=== PATIENT | female | born 1990 | race Caucasian/White ===

== ENCOUNTER 2017-11-21 07:00 | Inpatient (IN) | payer OTHER ==
[~2017-11-21] VITALS: Ht 162.6 cm; Wt 65.8 kg
[2017-11-21] VITALS (49 sets, daily range): BP systolic 86–124; BP diastolic 52–84
[2017-11-21] MEDS ORDERED: D5 LR IV SOLUTION 1,000 ML IV SCH (08:32)
[2017-11-21] MEDS ORDERED: AMPICILLIN FOR IV USE 2,000 MG in NS (IVPB) 50 ML IV SCH (08:32)
[2017-11-21] MEDS ORDERED: NS (IVPB) 50 ML ONE (08:40)
[2017-11-21] MEDS ORDERED: MINERAL OIL CONCENTRATE 99.9% 15 ML UDC TOP PRN (08:45)
[2017-11-21] MEDS ORDERED: LIDOCAINE/EPI 2% 1:200,00 (XYLOCAINE) 10 ML VIAL INJ ONE (08:45)
--- OUTSIDE RECORDS SUMMARY | 2017-11-21 08:51 | XMS REPORT ---
Author Author SEVERIANO HOOD [facility] Address [address] [place] [address] Care Team Providers Care Outboard Technician Name Role Phone SEVERIANO HOOD Unavailable PROBLEMS Type Condition ICD9-CM Code [id number] Code Onset Dates Condition Status SNOMED Code Problem Panic disorder without agoraphobia F41.0 Active 77779780 Problem Endocrine, nutritional and metabolic diseases complicating , third trimester O99.283 Active 615000172 Problem Supervision of high risk in third trimester O09.93 Active 99246003 Problem Endocrine, nutritional and metabolic diseases complicating , second trimester O99.282 Active 747674567 Problem Hypothyroidism, unspecified type E03.9 Active 19354668 Problem Supervision of normal first in second trimester Z34.02 Active 18108390 Problem Insufficient antepartum care O09.30 Active [id number] ALLERGIES No Information ENCOUNTERS Encounter Location Date Diagnosis [facility] [address] [id number] [id number] 19 Nov, 2017 [facility] [address] [id number], [place] [id number] Nov, Supervision of high risk in third trimester O09.93 ; Endocrine, nutritional and metabolic diseases complicating , third trimester O99.283 ; Hypothyroidism, unspecified type E03.9 and Insufficient antepartum care O09.30 [facility] [address] [facility] [id number], [place] [address] Nov, [facility] [address] [facility] [id number], [place] [address] Nov, [facility] [address] [facility] [id number][place] [address] Oct, Supervision of high risk in third trimester O09.93 ; Endocrine, nutritional and metabolic diseases complicating , third trimester O99.283 and Hypothyroidism, unspecified type E03.9 [facility] [address] [facility] [id number] [place] [address] Oct, [facility] [address] [facility] [id number] [place] [id number] Oct, Supervision of high risk in third trimester O09.93 ; Endocrine, nutritional and metabolic diseases complicating , third trimester O99.283 ; Hypothyroidism, unspecified type E03.9 and Insufficient antepartum care O09.30 [facility] [address] [id number], [place] [id number] Oct, [facility] [address] [id number], [place] [id number] Sep, Hypothyroidism, unspecified type E03.9 [id number], [place] [id number] Sep, Supervision of high risk in third trimester O09.93 ; Endocrine, nutritional and metabolic diseases complicating , third trimester O99.283 ; Hypothyroidism, unspecified type E03.9 ; Insufficient antepartum care O09.30 and Encounter for immunization Z23 [facility] York[facility] [address] [id number], [place] [address] Sep, Second trimester Z34.92 [facility] [address] [id number], [place] [id number] Aug, Hypothyroidism, unspecified type E03.9 [facility] [address] [address] [id number], [place] [address]34[address] Aug, Supervision of normal first in second trimester Z34.02 ; Endocrine, nutritional and metabolic diseases complicating , second trimester O99.282 ; Insufficient antepartum care O09.30 and Hypothyroidism, unspecified type E03.9 [facility] [address] [address] [id number], [place] [address] Aug, 26 weeks gestation of Z3A.26 and Hypothyroidism, unspecified type E03.9 [facility] [address] [id number], [place] [address] Nov, Routine gynecological examination Z01.419 and Encounter for oral contraception initial prescription Z30.011 [facility] [address] [id number], [place] [id number] Sep, Encounter for Depo-Provera contraception Z30.42 [facility] [address] [place] [address] AVE [id number], [place] [address]5688 Jun, Encounter for Depo-Provera contraception Z30.42 [facility] [address] [place] [address] [id number], [place] [id number] Mar, Encounter for Depo-Provera contraception Z30.42 [facility] [address] [place] [address] AV [id number], [place] [id number] Dec, Encounter for Depo-Provera contraception Z30.42 [facility] [address] [place] [address] AV [id number], [place] [id number] Oct, [facility] [address] [place] [address] AV [id number], [place] [id number] Sep, Well woman exam Z01.419 ; Anxiety F41.9 ; Screen for STD ( sexually transmitted disease) Z11.3 ; Vagina, candidiasis B37.3 ; Other specified bacterial agents as the cause of diseases classified elsewhere B96.89 and Acute vaginitis N76.0 [facility] [address] [place] [address] AV [id number], [place] [id number] Sep, Panic disorder without agoraphobia F41.0 [facility] [address] [place] [address] AV [id number], [place] [id number] Sep, Encounter for Depo-Provera contraception Z30.42 [facility] [address] [id number], [place] [address] Jun, Encounter for Depo-Provera contraception Z30.42 [facility] [address] [place] [address] AV [id number], [place] [id number] Mar, Encounter for Depo-Provera contraception Z30.42 [facility] [address] [id number], [place] [address] Dec, Encounter for Depo-Provera contraception Z30.42 [facility] [address] [facility] [id number], [place] [address] Dec, [facility] [address] [id number], [place] [id number] Dec, UTI (urinary tract infection) N39.0 [facility] [address] [id number], [place] [address] Oct, Encounter for contraceptive management V25.9 [facility] [address] [id number], [place] [id number] July, Encounter for contraceptive management V25.9 [facility] [address]00565100[place], [place] [address] Jun, [facility] [address] [id number], [place] [address] Jun, [facility] [id number] [place] [address] Apr, [facility] [address]00565100[place], [place] [address] Apr, [facility] [address]00565100[place], [place] [address] Jan, [facility] [address]00565100[place], [place] [address] Jan, [facility] [address]00565100[place], [place] [address] Jan, [facility] [address] [id number], [place] [address] Jan, [facility] [address]65100[place], [place] [address] Dec, [facility] [address] [id number], [place] [address] Dec, [facility] [address] [id number], [place] [address] Dec, [facility] [address] [id number], [place] [address] Dec, [facility] [address] [id number], [place] [address] Oct, [facility] [address] [id number], [place] [address] Oct, [facility] [address] [id number], [place] [address] Aug, [facility] [address] [id number], [place] [address] Aug, [facility] [address]65100[place], [place] [address] May, [facility] [address] [facility] [id number], [place] [address] May, [facility] [address] [id number], [place] [address] Apr, [facility] [address] [id number], [place] [address]46 Apr, [facility] [address] [id number], [place] [address] Feb, [facility] [address] [facility] [id number], [place] [address] Feb, [facility] [address] [id number], [place] [id number] Sep, IMMUNIZATIONS No Known Immunizations SOCIAL HISTORY Never Assessed REASON FOR VISIT Medication Adjustment PLAN OF CARE VITAL SIGNS MEDICATIONS Medication Instructions Dosage Frequency Start Date End Date Duration Status Levothyroxine Sodium 100 MCG Orally Once a day 1 tablet on an empty stomach in the morning 24h 30 Tobi, 2018 30 day(s) Active RESULTS No Results PROCEDURES No Known procedures INSTRUCTIONS MEDICATIONS ADMINISTERED No Known Medications MEDICAL (GENERAL) HISTORY Type Description Date Surgical History No know Surgical history Hospitalization History abscess tooth 2011
--- OUTSIDE RECORDS SUMMARY | 2017-11-21 08:51 | XMS REPORT ---
Author Author SEVERIANO HOOD [facility] Address [address] [place] [address] Care Team Providers Care Trimming Inspector Name Role Phone SEVERIANO HOOD Unavailable PROBLEMS Type Condition ICD9-CM Code [id number] Code Onset Dates Condition Status SNOMED Code Problem Panic disorder without agoraphobia F41.0 Active 68290789 Problem Endocrine, nutritional and metabolic diseases complicating , third trimester O99.283 Active 834893287 Problem Supervision of high risk in third trimester O09.93 Active 53422434 Problem Endocrine, nutritional and metabolic diseases complicating , second trimester O99.282 Active 204873072 Problem Hypothyroidism, unspecified type E03.9 Active 69664555 Problem Supervision of normal first in second trimester Z34.02 Active 11844386 Problem Insufficient antepartum care O09.30 Active [id number] ALLERGIES No Known Allergies ENCOUNTERS Encounter Location Date Diagnosis [facility] [address] [id number] [id number] 19 Nov, 2017 [facility] [address] [facility] [address] [id number], [place] [id number] Nov, Supervision of high risk in third trimester O09.93 ; Endocrine, nutritional and metabolic diseases complicating , third trimester O99.283 ; Hypothyroidism, unspecified type E03.9 and Insufficient antepartum care O09.30 [facility] [address] [facility] [id number], [place] [address] Nov, [facility] [address] [facility] [id number], [place] 56278125- [address] Nov, [facility] [address] [facility] [id number], [place] [id number] Oct, Supervision of high risk in third trimester O09.93 ; Endocrine, nutritional and metabolic diseases complicating , third trimester O99.283 and Hypothyroidism, unspecified type E03.9 [facility] [address] [facility] [id number] [place] [address]74- [address] Oct, [facility] [address] [facility] [id number] [place] [address] Oct, Supervision of high risk in third trimester O09.93 ; Endocrine, nutritional and metabolic diseases complicating , third trimester O99.283 ; Hypothyroidism, unspecified type E03.9 and Insufficient antepartum care O09.30 [facility] [address] [id number], [place] 115[address] Oct, [facility] [address] [id number], [place] [address] Sep, Hypothyroidism, unspecified type E03.9 [facility]ITALhowsimple [facility] [id number], [place] [id number] Sep, Supervision of high risk in third trimester O09.93 ; Endocrine, nutritional and metabolic diseases complicating , third trimester O99.283 ; Hypothyroidism, unspecified type E03.9 ; Insufficient antepartum care O09.30 and Encounter for immunization Z23 [facility] [address] [id number], [place] [address] Sep, Second trimester Z34.92 [facility] [address] [id number], [place] [id number] Aug, Hypothyroidism, unspecified type E03.9 [facility] [address] [id number], [place] [address] Aug, Supervision of normal first in second trimester Z34.02 ; Endocrine, nutritional and metabolic diseases complicating , second trimester O99.282 ; Insufficient antepartum care O09.30 and Hypothyroidism, unspecified type E03.9 [facility] [address] [id number], [place] [id number] Aug, 26 weeks gestation of Z3A.26 and Hypothyroidism, unspecified type E03.9 [facility] [address] [facility] [address] [id number], [place] [address] Nov, Routine gynecological examination Z01.419 and Encounter for oral contraception initial prescription Z30.011 [facility] [address] [id number], [place] [id number] Sep, Encounter for Depo-Provera contraception Z30.42 [facility] [address] [place] [address] AV [id number], [place] [address]25[address] Jun, Encounter for Depo-Provera contraception Z30.42 [facility] [address] [place] [address] [id number], [place] [address]209[address] Mar, Encounter for Depo-Provera contraception Z30.42 [facility] [address] [place] [address] AV [id number], [place] 943405[address] Dec, Encounter for Depo-Provera contraception Z30.42 [facility] [address] [place] [address] AV [id number], [place] 9[address]796735 Oct, [facility] [address] [place] [address] AV [id number], [place] [id number] Sep, Well woman exam Z01.419 ; Anxiety F41.9 ; Screen for STD ( sexually transmitted disease) Z11.3 ; Vagina, candidiasis B37.3 ; Other specified bacterial agents as the cause of diseases classified elsewhere B96.89 and Acute vaginitis N76.0 [facility] [address] [place] [address] AV [id number], [place] [id number] Sep, Panic disorder without agoraphobia F41.0 [facility] [address] [place] [address] AV [id number], [place] [id number] Sep, Encounter for Depo-Provera contraception Z30.42 [facility] [address] [facility] [address] [id number], [place] [address]7101 Jun, Encounter for Depo-Provera contraception Z30.42 [facility] [address] [place] [address] AV [id number], [place] [address] Mar, Encounter for Depo-Provera contraception Z30.42 [facility] [address] [facility] [address] [id number], [place] [address]1986[address] Dec, Encounter for Depo-Provera contraception Z30.42 [facility] [address] [facility] [id number], [place] [address] Dec, [facility] [address] [id number], [place] 559316858 Dec, UTI (urinary tract infection) N39.0 [facility] [address] [id number], [place] [address] Oct, Encounter for contraceptive management V25.9 [facility] [address] [id number], [place] [address]662071 July, Encounter for contraceptive management V25.9 [facility] [address]00565100[place], [place] [address] Jun, [facility] [address]00565100[place], [place] [address]- [address] Jun, [facility] [id number] [place] [address] Apr, [facility] [address]00565100[place], [place] [address]- [address] Apr, [facility] [address]00565100[place], [place] [address]- [address] Jan, [facility] [address]00565100[place], [place] [address]- 9515 Jan, [facility] [address]00565100[place], [place] [address]- 9463 Jan, [facility] [address]00565100[place], [place] [address]- 3833 Jan, [facility] [address]00565100[place], [place] [address]- [address]123 Dec, [facility] [address] [id number], [place] [address]- 6336 Dec, [facility] [address] [id number], [place] [address]- 5666 Dec, [facility] [address] [id number], [place] [address]- 2546 Dec, [facility] [address]00565100[place], [place] [address]- 4146 Oct, [facility] [address] [id number], [place] [address]- 4620 Oct, [facility] [address]00565100[place], [place] [address]- [address]16 Aug, [facility] [address]00565100[place], [place] [address]- 5916 Aug, [facility] [address]00565100[place], [place] [address]- 6136 May, [facility] [address] [id number], [place] [address]- 4319 May, [facility] [address] [id number], [place] [address]- 2766 Apr, [facility] [address] [id number], [place] [address]- 2546 Apr, [facility] [address] [id number], [place] [address]- 5276 Feb, [facility] [address] [facility] [id number], [place] [address]- 2546 Feb, [facility] [id number], [place] [id number] Sep, IMMUNIZATIONS Vaccine Route Administration Date Status TDAP (BOOSTRIX) IM Intramuscular October 01, 2017 Administered SOCIAL HISTORY Never Assessed REASON FOR VISIT OB f/u PLAN OF CARE Activity Details Follow Up 2 Weeks Reason: VITAL SIGNS Weight 141.4 lbs 2017-10-01 Blood pressure systolic 100 mmHg 2017-10-01 Blood pressure diastolic 60 mmHg 2017-10-01 MEDICATIONS Medication Instructions Dosage Frequency Start Date End Date Duration Status Levothyroxine Sodium 75 mcg Orally Once a day 1 tablet on an empty stomach in the morning 24h Aug, 30 day(s) Active - Orally Once a day 1 tablet 24h Active RESULTS Name Result Date Reference Range UA OB DIP (IN HOUSE) 2017-10-01 Glucose negative Protein negative Ultrasound : OB, Limited PROCEDURES Procedure Date Ordered Result Body Site URINE-NO MICRO October 01, 2017 VENIPUNCT, ROUTINE* October 01, 2017 OB US >/=14 WKS, SNGL FETUS October 01, 2017 TDAP (BOOSTRIX) October 01, 2017 ASSAY THYROID STIM HORMONE October 01, 2017 SINGLE IMMUNIZATION ADMIN October 01, 2017 INSTRUCTIONS MEDICATIONS ADMINISTERED No Known Medications MEDICAL (GENERAL) HISTORY Type Description Date Surgical History No know Surgical history Hospitalization History abscess tooth 2011
--- OUTSIDE RECORDS SUMMARY | 2017-11-21 08:52 | XMS REPORT ---
Author Author DAVID BEACH [facility] HERMAN Address [address] [place] [address] Care Team Providers Care Traffic Sergeant Name Role Phone DAVID BEACH Unavailable PROBLEMS Type Condition ICD9-CM Code HHP52-LW Code Onset Dates Condition Status SNOMED Code Problem Panic disorder without agoraphobia F41.0 Active 59050030 Problem Endocrine, nutritional and metabolic diseases complicating , third trimester O99.283 Active 681492230 Problem Supervision of high risk in third trimester O09.93 Active 16824135 Problem Endocrine, nutritional and metabolic diseases complicating , second trimester O99.282 Active 987361312 Problem Hypothyroidism, unspecified type E03.9 Active 05029523 Problem Supervision of normal first in second trimester Z34.02 Active 41996548 Problem Insufficient antepartum care O09.30 Active [id number] ALLERGIES No Known Allergies ENCOUNTERS Encounter Location Date Diagnosis [facility] [address] [facility] [id number], [place] [id number] Nov, [facility] [address] [id number] [address] Nov, [facility] [address] [id number], [place] [address] Oct, Supervision of high risk in third trimester O09.93 ; Endocrine, nutritional and metabolic diseases complicating , third trimester O99.283 and Hypothyroidism, unspecified type E03.9 [facility] [address] [facility] [id number] J[place] [address] Oct, [facility] 120 [facility] [id number][place] [address] Oct, Supervision of high risk in third trimester O09.93 ; Endocrine, nutritional and metabolic diseases complicating , third trimester O99.283 ; Hypothyroidism, unspecified type E03.9 and Insufficient antepartum care O09.30 [facility] [address] [place] [address] AV [id number], [place] [address]90[address] Oct, [facility] [address] [place] [address] AV [id number], [place] [address] Sep, Hypothyroidism, unspecified type E03.9 [facility] HER[facility] [id number], [place] [address] Sep, Supervision of high risk in third trimester O09.93 ; Endocrine, nutritional and metabolic diseases complicating , third trimester O99.283 ; Hypothyroidism, unspecified type E03.9 ; Insufficient antepartum care O09.30 and Encounter for immunization Z23 [facility] [address] [place] [address] [id number], [place] [address]000295 Sep, Second trimester Z34.92 [facility] [address] [place] [address] [id number], [place] [address] Aug, Hypothyroidism, unspecified type E03.9 [facility]Virt[facility]HERMAN[address] [id number], [place] [address] Aug, Supervision of normal first in second trimester Z34.02 ; Endocrine, nutritional and metabolic diseases complicating , second trimester O99.282 ; Insufficient antepartum care O09.30 and Hypothyroidism, unspecified type E03.9 [facility]HER[facility] [id number], [place] 843793326 Aug, 26 weeks gestation of Z3A.26 and Hypothyroidism, unspecified type E03.9 [facility]HERMAN[address] [id number], [place] [address] Nov, Routine gynecological examination Z01.419 and Encounter for oral contraception initial prescription Z30.011 [facility] RightsTER [address] [place] [address] [id number], [place] [address]294 Sep, Encounter for Depo-Provera contraception Z30.42 [facility] RightsTER [employer] [facility] [id number], [place] [address]16[address]15 Jun, Encounter for Depo-Provera contraception Z30.42 [facility] [address] [id number], [place] [address] Mar, Encounter for Depo-Provera contraception Z30.42 [facility] [address] [id number], [place] [address] Dec, Encounter for Depo-Provera contraception Z30.42 [facility] [address] [id number], [place] [address]7626[address] Oct, [facility] Critical access hospital[address] [id number], [place] [address]79[address]676 Sep, Well woman exam Z01.419 ; Anxiety F41.9 ; Screen for STD ( sexually transmitted disease) Z11.3 ; Vagina, candidiasis B37.3 ; Other specified bacterial agents as the cause of diseases classified elsewhere B96.89 and Acute vaginitis N76.0 [facility] [address] [id number], [place] [address]28224081 Sep, Panic disorder without agoraphobia F41.0 [facility] [address] [place] [address] AV [id number], [place] [id number] Sep, Encounter for Depo-Provera contraception Z30.42 [facility] [address] [id number], [place] [id number] Jun, Encounter for Depo-Provera contraception Z30.42 [facility] [address] [id number], [place] [id number] Mar, Encounter for Depo-Provera contraception Z30.42 [facility] [address] [id number], [place] [id number] Dec, Encounter for Depo-Provera contraception Z30.42 [facility] [address] [facility] [id number] [place] [address] Dec, [facility] [address] [place] [address] AVE [id number], [place] [id number] Dec, UTI (urinary tract infection) N39.0 [facility] [address] [id number] [place] [address] Oct, Encounter for contraceptive management V25.9 [facility] [address] [id number] [place] [id number] July, Encounter for contraceptive management V25.9 [facility] [address] [id number] [address] Jun, [facility] [address] [facility] [id number] [address] Jun, [facility] [address] [facility] [id number] [place] [address] Apr, [facility] [address] [facility] [id number] [place] [address] Apr, [facility] [address] [facility] [id number] [place] [address] Jan, [facility] [address] [facility] [id number] [place] [address] Jan, [facility] [address] [facility] [id number] [place] [address] Jan, [facility] [address] [facility] [id number] [place] [address] Jan, [facility] [address] [facility] [id number] [place] [address] Dec, [facility] [address] [facility] [id number] [place] [address] Dec, [facility] [address] [facility] [id number] [address] Dec, [facility] [address] [facility] [id number] [place] [address] Dec, [facility] [address] [facility] [id number] [address] Oct, [facility] [address] [facility] [id number] [place] [address] Oct, [facility] [address] [id number] [address] Aug, [facility] [address] [id number] [address] Aug, [facility] [address]00565100[place] [address] May, [facility] [address] [id number] [address] May, [facility] [address]00565100[place] [address] Apr, [facility] [address]00565100[place] [address] Apr, [facility] [address] [id number] [address] Feb, [facility] [address] [facility] [id number] [place] [address] Feb, [facility] [address] [id number], [place] [address] Sep, IMMUNIZATIONS No Known Immunizations SOCIAL HISTORY Never Assessed REASON FOR VISIT OB f/aarti Silver ma PLAN OF CARE Activity Details Follow Up 10/01- Needs ultrasound Reason: VITAL SIGNS Height 63 in 2017-09-18 Weight 141.7 lbs 2017-09-18 Temperature 97.7 degrees Fahrenheit 2017-09-18 Heart Rate 73 bpm 2017-09-18 Respiratory Rate 18 2017-09-18 Oximetry 98 % 2017-09-18 BMI 25.101 kg/m2 2017-09-18 Blood pressure systolic 108 mmHg 2017-09-18 Blood pressure diastolic 60 mmHg 2017-09-18 MEDICATIONS Medication Instructions Dosage Frequency Start Date End Date Duration Status - Orally Once a day 1 tablet 24h Active Levothyroxine Sodium 75 mcg Orally Once a day 1 tablet on an empty stomach in the morning 24h 24 Aug, 2017 30 day(s) Active RESULTS No Results PROCEDURES No Known procedures INSTRUCTIONS MEDICATIONS ADMINISTERED No Known Medications MEDICAL (GENERAL) HISTORY Type Description Date Hospitalization History abscess tooth 2011
--- OUTSIDE RECORDS SUMMARY | 2017-11-21 08:52 | XMS REPORT ---
Author DAVID Herrera [facility] eClinicalWorks Address Unknown Phone Unavailable Care Team Providers Care Needle Control Cheniller Name Role Phone DAVID BEACH CP Unavailable Allergies No Known Allergies Problems Problem Type Condition Code Onset Dates Condition Status Assessment Encounter for Depo-Provera contraception Z30.42 Active Medications No Known Medications Procedures Procedure Coding System Code Date THER/PROPH/DIAG INJ, SC/IM CPT-4 32851 Jan 04, 2015 URINE TEST CPT-4 25342 Jan 04, 2015 DEPO PROVERA (150 MG/ML) CPT-4 J1050 Jan 04, 2015 Results Name Result Date Reference Range Unit Abnormality Flag TEST, URINE (IN HOUSE) Summary Purpose eClinicalWorks Submission
--- OUTSIDE RECORDS SUMMARY | 2017-11-21 08:52 | XMS REPORT ---
Author Author DAVID BEACH [facility] Address [address] [place] [address] Care Team Providers Care Brush Painter Name Role Phone DAVID BEACH Unavailable PROBLEMS Type Condition ICD9-CM Code QMQ34-PQ Code Onset Dates Condition Status SNOMED Code Problem Panic disorder without agoraphobia F41.0 Active 38499885 ALLERGIES Unknown Allergies SOCIAL HISTORY No smoking Hx information available PLAN OF CARE VITAL SIGNS MEDICATIONS Unknown Medications RESULTS Name Result Date Reference Range TEST, URINE (IN HOUSE) 2016-03-27 RESULTS neg Lot # [id number] Control pos Exp date 08/07/17 PROCEDURES Procedure Date Ordered Related Diagnosis Body Site DEPO PROVERA (150 MG/ML) Mar 27, 2016 THER/PROPH/DIAG INJ, SC/IM Mar 27, 2016 URINE TEST Mar 27, 2016 IMMUNIZATIONS Vaccine Route Administration Date Status DEPO PROVERA (150 MG/ML) IM Intramuscular Mar 27, 2016 Administered
--- OUTSIDE RECORDS SUMMARY | 2017-11-21 08:52 | XMS REPORT ---
Author DAVID Herrera eClinical[employer] Address Unknown Phone Unavailable Care Team Providers Care Mercerizing Range Feeder Name Role Phone DAVID BEACH CP Unavailable Allergies, Adverse Reactions, Alerts Substance Reaction Event Type N.K.D.A. Info Not Available Non Drug Allergy Problems Problem Type Condition Code Onset Dates Condition Status Assessment UTI (urinary tract infection) N39.0 Active Medications Medication Code System Code Instructions Start Date End Date Status Dosage Pyridium [facility] [address]-80 100 MG Orally Three times a day- bladder pain Dec 30, 2014 Jan 02, 2015 1 tablet after meals Bactrim DS [facility] [address]-68 800-160 MG Orally 2 times a day Dec 30, 2014 Jan 09, 2015 1 tablet Depo-Provera [facility] [address]-54 150 mg/mL Feb 23, 2013 inject 150 mg by intramuscular route every 3 months Procedures Procedure Coding System Code Date Office Visit, Est Pt., Level 3 CPT-4 75766 Dec 30, 2014 URINE CULTURE/COLONY COUNT CPT-4 58448 Dec 30, 2014 URINALYSIS, AUTO, W/O SCOPE CPT-4 67547 Dec 30, 2014 Vital Signs Date/Time: Dec 30, 2014 Temperature 97.4 F Weight 117.4 lbs Height 63 in BMI 20.79 Index Blood Pressure Diastolic 62 mmHg Blood Pressure Systolic 98 mmHg Cardiac Monitoring Heart Rate 75 bpm Results Name Result Date Reference Range Unit Abnormality Flag UA W/CULTURE IF INDICATED (IN HOUSE) Summary Purpose eClinicalWorks Submission
--- OUTSIDE RECORDS SUMMARY | 2017-11-21 08:52 | XMS REPORT ---
Author Author SEVERIANO HOOD [facility] Address [address] [place] [address] Care Team Providers Care Cafeteria Aide Name Role Phone JEREMYDIDISEVERIANO Unavailable PROBLEMS Type Condition ICD9-CM Code EGD69-MU Code Onset Dates Condition Status SNOMED Code Problem Panic disorder without agoraphobia F41.0 Active 27246015 Problem Endocrine, nutritional and metabolic diseases complicating , third trimester O99.283 Active 741970193 Problem Supervision of high risk in third trimester O09.93 Active 58738221 Problem Endocrine, nutritional and metabolic diseases complicating , second trimester O99.282 Active 769199438 Problem Hypothyroidism, unspecified type E03.9 Active 96001986 Problem Supervision of normal first in second trimester Z34.02 Active 50765041 Problem Insufficient antepartum care O09.30 Active 7871438253580 ALLERGIES No Known Allergies ENCOUNTERS Encounter Location Date Diagnosis [facility] HERMAN [address] [id number] [id number] Nov, 2017 [facility] 120 [facility] [id number], [place] [id number] Oct, Supervision of high risk in third trimester O09.93 ; Endocrine, nutritional and metabolic diseases complicating , third trimester O99.283 and Hypothyroidism, unspecified type E03.9 [facility] [address] [facility] [id number], [place] [address]- 2014 Oct, [address] [id number] [id number] Oct, 2018 Supervision of high risk in third trimester O09.93 ; Endocrine, nutritional and metabolic diseases complicating , third trimester O99.283 ; Hypothyroidism, unspecified type E03.9 and Insufficient antepartum care O09.30 [facility] [employer]HER[address] [id number], [place] [address] Oct, [facility] [address] [facility] [address] [id number], [place] [address] Sep, Hypothyroidism, unspecified type E03.9 [facility] [address] [facility] [address] [id number], [place] 280[address]355 Sep, Supervision of high risk in third trimester O09.93 ; Endocrine, nutritional and metabolic diseases complicating , third trimester O99.283 ; Hypothyroidism, unspecified type E03.9 ; Insufficient antepartum care O09.30 and Encounter for immunization Z23 [facility] [address] [facility] [address] [id number], [place] [address] Sep, Second trimester Z34.92 [facility] Hirsch [facility] AV [id number], [place] [id number] Aug, Hypothyroidism, unspecified type E03.9 [facility] [address] [place] [address] AV [id number], [place] [address] Aug, Supervision of normal first in second trimester Z34.02 ; Endocrine, nutritional and metabolic diseases complicating , second trimester O99.282 ; Insufficient antepartum care O09.30 and Hypothyroidism, unspecified type E03.9 [facility] [address] [facility] [address] [id number], [place] [address] Aug, 26 weeks gestation of Z3A.26 and Hypothyroidism, unspecified type E03.9 [facility] [address] [facility] [address] [id number], [place] [address] Nov, Routine gynecological examination Z01.419 and Encounter for oral contraception initial prescription Z30.011 [facility] [address] [facility] [address] [id number], [place] [address] Sep, Encounter for Depo-Provera contraception Z30.42 [facility] [address] [id number], [place] [address] Jun, Encounter for Depo-Provera contraception Z30.42 [facility] [address] [id number], [place] [address] Mar, Encounter for Depo-Provera contraception Z30.[address] [facility] [address] [id number], [place] [address] Dec, Encounter for Depo-Provera contraception Z30.42 [facility] [address] [facility] [address] [id number], [place] [address] Oct, [facility] [address] [id number], [place] [address] Sep, Well woman exam Z01.419 ; Anxiety F41.9 ; Screen for STD ( sexually transmitted disease) Z11.3 ; Vagina, candidiasis B37.3 ; Other specified bacterial agents as the cause of diseases classified elsewhere B96.89 and Acute vaginitis N76.0 [facility] [address] [facility] [address] [id number], [place] [address] Sep, Panic disorder without agoraphobia F41.0 [facility] [address] [facility] [address] [id number], [place] [id number] Sep, Encounter for Depo-Provera contraception Z30.42 [facility] [address] [facility] [address] [id number], [place] [address] Jun, Encounter for Depo-Provera contraception Z30.42 [facility] [address] [facility] [address] [id number], [place] [address] Mar, Encounter for Depo-Provera contraception Z30.42 [facility] [address] [facility] [address] [id number], [place] [address] Dec, Encounter for Depo-Provera contraception Z30.42 [facility] [address] [facility] [id number], [place] [address]12- [address] Dec, [facility] [address] [facility] [address] [id number], [place] [address] Dec, UTI (urinary tract infection) N39.[address] [facility] [address] [address] [id number], [place] [address] Oct, Encounter for contraceptive management V25.9 [facility] [address] [facility] [address] [id number], [place] [id number] July, Encounter for contraceptive management V25.9 [facility] [address] [facility] [id number][place] [address] Jun, [facility] [address] [facility] [id number] [place] [address] Jun, [facility] [address] [facility] [id number] [place] [address] Apr, [facility] [place] [id number] [place] [address]- [address] Apr, [facility] [id number] [place] [address]- [address]8 Jan, [facility] [id number] [place] [address]- 9573 Jan, [facility] [address] [id number] [address] Jan, [facility] [address] [id number] [address]- [address] Jan, [facility] [address] [id number] [address]- [address]60 Dec, [facility] [address] [facility] [id number][place] [address]- [address] Dec, [facility] [place] [facility] [address] [facility] [id number][place] [address]- [address] Dec, [facility] [place] [facility] [address] [facility] [id number][place] [address]- [address] Dec, [facility] [address] [facility] [id number][place] [address]- 8855 Oct, [facility] [address] [id number] [address]- [address]46 Oct, [facility] [address] [facility] [id number][place] [address]- [address]46 Aug, [facility] [address] [facility] [id number][place] [address]- 2546 Aug, [facility] [address] [facility] [id number][place] [address]- 2546 May, [facility] [address] [facility] [id number][place] [address]- 2546 May, [facility] [address] [facility] [id number][place] [address]- 2546 Apr, [facility] [address] [id number] [address]- 2546 Apr, [facility] [address] [id number] [address]- 2546 Feb, [facility] [address] [facility] [id number][place] [address]- [address] Feb, [facility] [address] [facility] [id number][place] [id number] Sep, IMMUNIZATIONS No Known Immunizations SOCIAL HISTORY Never Assessed REASON FOR VISIT OB-intake Alvin HOFFMAN PLAN OF CARE Activity Details Follow Up 3 Weeks Reason: VITAL SIGNS Height 63 in 2017-08-29 Weight 138.2 lbs 2017-08-29 Heart Rate 80 bpm 2017-08-29 Respiratory Rate 18 2017-08-29 BMI 24.481 kg/m2 2017-08-29 Blood pressure systolic 100 mmHg 2017-08-29 Blood pressure diastolic 62 mmHg 2017-08-29 MEDICATIONS Medication Instructions Dosage Frequency Start Date End Date Duration Status - Orally Once a day 1 tablet 24h Active Levothyroxine Sodium 50 MCG Orally Once a day 1 tablet on an empty stomach in the morning 24h Active RESULTS No Results PROCEDURES Procedure Date Ordered Result Body Site BLOOD TYPING, ABO August 29, 2017 BLOOD TYPING, RH (D) August 29, 2017 VARICELLA-ZOSTER ANTIBODY August 29, 2017 ASSAY THYROID STIM HORMONE August 29, 2017 COMPREHEN METABOLIC PANEL August 29, 2017 URINE CULTURE/COLONY COUNT August 29, 2017 DRUG TEST PRSMV DIR OPT OBS August 29, 2017 RUBELLA ANTIBODY August 29, 2017 HEPATITIS B SURFACE AG, EIA August 29, 2017 URINE-NO MICRO August 29, 2017 HEPATITIS C AB TEST August 29, 2017 BLOOD SEROLOGY, QUALITATIVE August 29, 2017 COMPLETE CBC W/AUTO DIFF WBC August 29, 2017 HIV-1 AG W/HIV-1 & HIV-2 AB August 29, 2017 CHYLMD TRACH, DNA, AMP PROBE August 29, 2017 N.GONORRHOEAE, DNA, AMP PROB August 29, 2017 VENIPUNCT, ROUTINE* August 29, 2017 INSTRUCTIONS MEDICATIONS ADMINISTERED No Known Medications MEDICAL (GENERAL) HISTORY Type Description Date Hospitalization History abscess tooth 2010
--- OUTSIDE RECORDS SUMMARY | 2017-11-21 08:52 | XMS REPORT ---
Author Author SEVERIANO HOOD Organization [facility] [place] Address [address] [place] [address] Care Team Providers Care Veterinarian Small Animal Name Role Phone JEREMYDIDI SEVERIANO Unavailable PROBLEMS Type Condition ICD9-CM Code EFB13-IR Code Onset Dates Condition Status SNOMED Code Problem Panic disorder without agoraphobia F41.0 Active 19577689 Problem Endocrine, nutritional and metabolic diseases complicating , third trimester O99.283 Active 645604213 Problem Supervision of high risk in third trimester O09.93 Active 51727907 Problem Endocrine, nutritional and metabolic diseases complicating , second trimester O99.282 Active 725069372 Problem Hypothyroidism, unspecified type E03.9 Active 36169581 Problem Supervision of normal first in second trimester Z34.02 Active 28077088 Problem Insufficient antepartum care O09.30 Active [id number] ALLERGIES No Information ENCOUNTERS Encounter Location Date Diagnosis [facility] [address] [id number] [id number] Oct, [facility], [place] [address] [id number] [address] Oct, [facility] [id number], [place] [address] Oct, Supervision of high risk in third trimester O09.93 ; Endocrine, nutritional and metabolic diseases complicating , third trimester O99.283 ; Hypothyroidism, unspecified type E03.9 and Insufficient antepartum care O09.30 [facility] [address] [id number], [place] [id number] 08 Oct, 2017 [facility] [address] [id number], [place] [address] Sep, Hypothyroidism, unspecified type E03.9 [facility] [address] [id number], [place] [id number] Sep, Supervision of high risk in third trimester O09.93 ; Endocrine, nutritional and metabolic diseases complicating , third trimester O99.283 ; Hypothyroidism, unspecified type E03.9 ; Insufficient antepartum care O09.30 and Encounter for immunization Z23 [facility] [address] [facility] [address] [id number], [place] [id number] Sep, Second trimester Z34.92 [facility] [address] [id number][place] [address] Aug, Hypothyroidism, unspecified type E03.9 [facility] TianCerdick HERAMN [address] [place] [address] AV [id number], [place] [id number] Aug, Supervision of normal first in second trimester Z34.02 ; Endocrine, nutritional and metabolic diseases complicating , second trimester O99.282 ; Insufficient antepartum care O09.30 and Hypothyroidism, unspecified type E03.9 [facility]ed[facility] HERMAN [address] [place] [address] AV [id number], [place] [address] Aug, 26 weeks gestation of Z3A.26 and Hypothyroidism, unspecified type E03.9 [facility]ed[facility] HERMAN [address] [place] [address] AV [id number], [place] [id number] Nov, Routine gynecological examination Z01.419 and Encounter for oral contraception initial prescription Z30.011 [facility]ed[facility] HERMAN [address] [place] [address] [id number], [place] [address] Sep, Encounter for Depo-Provera contraception Z30.42 [facility] [id number], [place] [address] Jun, Encounter for Depo-Provera contraception Z30.42 [facility] [address] AV [id number], [place] [id number] Mar, Encounter for Depo-Provera contraception Z30.42 [facility] [address] [facility] [id number], [place] [address] Dec, Encounter for Depo-Provera contraception Z30.[address] [facility] [address] [id number], [place] [id number] Oct, [facility] [address] [id number], [place] [address] Sep, Well woman exam Z01.419 ; Anxiety F41.9 ; Screen for STD ( sexually transmitted disease) Z11.3 ; Vagina, candidiasis B37.3 ; Other specified bacterial agents as the cause of diseases classified elsewhere B96.89 and Acute vaginitis N76.0 [facility] [address] [facility] [address] [id number], [place] [id number] Sep, Panic disorder without agoraphobia F41.0 [facility] [address] [facility] [address] [id number], [place] [id number] Sep, Encounter for Depo-Provera contraception Z30.42 [facility] [address] [facility] [address] [id number], [place] [id number] Jun, Encounter for Depo-Provera contraception Z30.42 [facility] [address] [facility] [address] [id number], [place] [id number] Mar, Encounter for Depo-Provera contraception Z30.42 [facility] [address] [facility] [address] [id number], [place] [id number] Dec, Encounter for Depo-Provera contraception Z30.42 [facility] [place] [address] [facility] [id number], [place] [address] Dec, [facility] [address] [facility] [address] [id number], [place] [id number] Dec, UTI (urinary tract infection) N39.0 [facility] [address] [facility] [address] [id number], [place] [id number] Oct, Encounter for contraceptive management V25.9 [facility] [address] [facility] AV [id number], [place] [address] July, Encounter for contraceptive management V25.9 [facility] [place] [facility] [address] [id number] [address] 14 Jun, 2014 [facility] [place] [facility] [address] [id number] [place] [address] Jun, [facility] [place] [facility] [address] [id number] [place] [address] Apr, [facility] [place] [facility] [address] [id number] [place] [address] Apr, [facility] [place] [facility] [address] [id number] [place] [address] Jan, [facility] [place] [facility] [address] [id number] [place] Jan, [facility] [place] [facility] [address] [id number] [place] [address] Jan, [facility] [place] [facility] [address] [id number] [place] [address] Jan, [facility] [place] [facility] [address] [id number] [place] [address] Dec, [facility] [place] [facility] [address] [id number] [place] [address] Dec, [facility] [place] [facility] [address] [id number] [place] [address] Dec, [facility] [place] [facility] [address] [id number] [place] [address] Dec, [facility] [place] [facility] [address] [id number] [place] [address] Oct, [facility] [place] [facility] [address] [id number] [place] [address] Oct, [facility] [place] [facility] [address] [id number] [place] [address] Aug, [facility] [place] [facility] [address] [id number] [place] [address] Aug, [facility] [place] [address] [facility] [id number], [place] [address] May, [facility] [place] [address] [facility] [id number], [place] [address] May, [facility] [place] [address] [facility] [id number], [place] [address] Apr, [facility] [place] [address] [id number], [place] [address] Apr, [facility] [place] [address] [id number], [place] [address] Feb, [facility] [place] [address] [facility] [id number], [place] [address] Feb, [facility] 120 [facility] [id number], [place] [id number] Sep, IMMUNIZATIONS No Known Immunizations SOCIAL HISTORY Never Assessed REASON FOR VISIT Change in medication PLAN OF CARE VITAL SIGNS MEDICATIONS Medication Instructions Dosage Frequency Start Date End Date Duration Status Levothyroxine Sodium 75 mcg Orally Once a day 1 tablet on an empty stomach in the morning 24h Aug, 30 day(s) Active RESULTS No Results PROCEDURES No Known procedures INSTRUCTIONS MEDICATIONS ADMINISTERED No Known Medications MEDICAL (GENERAL) HISTORY Type Description Date Hospitalization History abscess tooth 2010
--- OUTSIDE RECORDS SUMMARY | 2017-11-21 08:52 | XMS REPORT ---
Author Author DAVID BEACH [facility] CenterAirgainHERMAN Address [address] [place] [address] Care Team Providers Care Vault Manager Name Role Phone DAVID BEACH Unavailable PROBLEMS Type Condition ICD9-CM Code JMU38-RK Code Onset Dates Condition Status SNOMED Code Problem Panic disorder without agoraphobia F41.0 Active 49499979 Problem Endocrine, nutritional and metabolic diseases complicating , third trimester O99.283 Active 425776689 Problem Supervision of high risk in third trimester O09.93 Active 12716794 Problem Endocrine, nutritional and metabolic diseases complicating , second trimester O99.282 Active 509562056 Problem Hypothyroidism, unspecified type E03.9 Active 35708444 Problem Supervision of normal first in second trimester Z34.02 Active 38560174 Problem Insufficient antepartum care O09.30 Active [id number] ALLERGIES No Known Allergies ENCOUNTERS Encounter Location Date Diagnosis [id number] [id number] Oct, [address]65100[place], [place] [address] Oct, Supervision of high risk in third trimester O09.93 ; Endocrine, nutritional and metabolic diseases complicating , third trimester O99.283 ; Hypothyroidism, unspecified type E03.9 and Insufficient antepartum care O09.30 [facility] [address] [facility] [address] [id number] [place] [id number] Oct, [facility] [address] [facility] [address] [id number], [place] [id number] Sep, Hypothyroidism, unspecified type E03.9 [facility] [address] [facility] [address] [id number], [place] [address] Sep, Supervision of high risk in third trimester O09.93 ; Endocrine, nutritional and metabolic diseases complicating , third trimester O99.283 ; Hypothyroidism, unspecified type E03.9 ; Insufficient antepartum care O09.30 and Encounter for immunization Z23 [facility] [address] [facility] [address] [id number], [place] [address] Sep, Second trimester Z34.92 [facility] HER[facility] [address] [facility] [address] [id number], [place] [id number] Aug, Hypothyroidism, unspecified type E03.9 [facility] HER[facility] [address] [facility] [address] [id number], [place] [address] Aug, Supervision of normal first in second trimester Z34.02 ; Endocrine, nutritional and metabolic diseases complicating , second trimester O99.282 ; Insufficient antepartum care O09.30 and Hypothyroidism, unspecified type E03.9 [facility]ITAL[facility] EnergyK HERMAN [address] [place] [address] AV [id number], [place] [id number] Aug, 26 weeks gestation of Z3A.26 and Hypothyroidism, unspecified type E03.9 [facility]ITAL[facility] EnergyK HERMAN [address] [place] [address] [id number], [place] [id number] Nov, Routine gynecological examination Z01.419 and Encounter for oral contraception initial prescription Z30.011 [facility] MILESTER [address] [facility] [address] [id number], [place] [address] Sep, Encounter for Depo-Provera contraception Z30.42 [facility] [address] [facility] [address] [id number], [place] [address] Jun, Encounter for Depo-Provera contraception Z30.42 [facility] [address] [facility] [address] [id number], [place] [address] Mar, Encounter for Depo-Provera contraception Z30.42 [facility] [address] [facility] [address] [id number], [place] [address] Dec, Encounter for Depo-Provera contraception Z30.42 [facility] HER[facility] [address] [facility] [address] [id number], [place] [address] Oct, [facility] [address] [id number], [place] [address] Sep, Well woman exam Z01.419 ; Anxiety F41.9 ; Screen for STD ( sexually transmitted disease) Z11.3 ; Vagina, candidiasis B37.3 ; Other specified bacterial agents as the cause of diseases classified elsewhere B96.89 and Acute vaginitis N76.0 [facility] [address] [facility] [address] [id number], [place] [address] Sep, Panic disorder without agoraphobia F41.0 [facility] [address] [facility] [address] [id number], [place] [id number] Sep, Encounter for Depo-Provera contraception Z30.42 [facility] [address] [facility] [address] [id number], [place] [address] Jun, Encounter for Depo-Provera contraception Z30.42 [facility] HERMAN [address] [place] [address] AVE [id number], [place] [address] Mar, Encounter for Depo-Provera contraception Z30.42 [facility] [address] [place] [address] AVE [id number], [place] [address] Dec, Encounter for Depo-Provera contraception Z30.42 [facility] [address] [id number] [address] Dec, [facility] [address] [place] [address] AVE [id number], [place] [address] Dec, UTI (urinary tract infection) N39.0 [facility] [address] [facility] [address] [id number], [place] [address] Oct, Encounter for contraceptive management V25.9 [facility] HERMAN [address] [place] [address] AVE [id number], [place] [id number] July, Encounter for contraceptive management V25.9 [facility] [address] [id number] [address] Jun, [facility] [address] [id number] [place] [address] Jun, [facility] [place] [facility] [address] [id number] [place] [address] Apr, [facility] [place] [facility] [address] [id number] [place] [address] Apr, [facility] [place] [facility] [address] [id number] [place] Jan, [facility] [place] [facility] [address] [id number] [place] [address]- [address] Jan, [facility] [place] [facility] [address] [id number] [place] [address]- [address] Jan, [facility] [place] [facility] [address] [id number] [place] [address]- [address] Jan, [facility] [place] [facility] [address] [id number] [place] [address]- [address] Dec, [facility] [place] [facility] [address] [id number] [place] [address]- [address] Dec, [facility] [place] [facility] [address] [id number] [place] [address]- [address] Dec, [facility] [place] [facility] [address] [id number] [place] [address]- [address] Dec, [facility] [place] [facility] [address] [id number] [place] [address] Oct, [facility] [place] [facility] [address] [id number] [place] [address]- [address] Oct, [facility] [place] [facility] [address] [id number] [place] [address] Aug, [facility] [place] [facility] [address] [id number] [place] [address]- [address] Aug, [facility] [place] [facility] [address] [id number] [place] [address] May, [facility] [address] [facility] [id number] [place] [address] May, [facility] [address] [facility] [id number], [place] [address] Apr, [facility] [address] [facility] [id number], [place] [address] Apr, [facility] [address] [facility] [id number], [place] [address] Feb, [facility] [address] [facility] [id number][place] [address] Feb, [facility] [address] [facility] [id number], [place] [address] Sep, IMMUNIZATIONS No Known Immunizations SOCIAL HISTORY Never Assessed REASON FOR VISIT Pt reports she is 26 weeks . Seen Kian at 10 weeks tsh 13.5 needs refill of thyroid medication. Alvin HOFFMAN PLAN OF CARE Activity Details Follow Up 2 - 3 Days Reason:Dr. Sherwood- OB VITAL SIGNS Height 63 in 2017-08-25 Weight 138.8 lbs 2017-08-25 Heart Rate 81 bpm 2017-08-25 Respiratory Rate 18 2017-08-25 BMI 24.58 kg/m2 2017-08-25 Blood pressure systolic 110 mmHg 2017-08-25 Blood pressure diastolic 68 mmHg 2017-08-25 MEDICATIONS Medication Instructions Dosage Frequency Start Date End Date Duration Status - Orally Once a day 1 tablet 24h Active Levothyroxine Sodium 50 MCG Orally Once a day 1 tablet on an empty stomach in the morning 24h Active RESULTS Name Result Date Reference Range UA OB DIP (IN HOUSE) 2017-08-25 Glucose negative Protein negative PROCEDURES Procedure Date Ordered Result Body Site URINE-NO MICRO August 25, 2017 INSTRUCTIONS MEDICATIONS ADMINISTERED No Known Medications MEDICAL (GENERAL) HISTORY Type Description Date Hospitalization History abscess tooth 2010
--- OUTSIDE RECORDS SUMMARY | 2017-11-21 08:53 | XMS REPORT ---
Author DAVID Herrera [facility] eClinicalWorks Address Unknown Phone Unavailable Care Team Providers Care Stud Driver Name Role Phone DAVID BEACH CP Unavailable Allergies No Known Allergies Problems Problem Type Condition Code Onset Dates Condition Status Assessment Encounter for Depo-Provera contraception Z30.42 Active Medications No Known Medications Procedures Procedure Coding System Code Date DEPO PROVERA (150 MG/ML) CPT-4 J1050 Apr 03, 2015 THER/PROPH/DIAG INJ, SC/IM CPT-4 75619 Apr 03, 2015 URINE TEST CPT-4 88405 Apr 03, 2015 Results Name Result Date Reference Range Unit Abnormality Flag TEST, URINE (IN HOUSE) ----RESULTS NEGATIVE [id number] ----Lot # [id number] ----Control POSITIVE [id number] ----Exp date [id number] Summary Purpose eClinicalWorks Submission
--- OUTSIDE RECORDS SUMMARY | 2017-11-21 08:53 | XMS REPORT ---
Author Author DAVID BEACH [facility] eClinicalWorks Address Unknown Phone Unavailable Care Team Providers Care Second Chef Name Role Phone DAVID BEACH CP Unavailable Allergies, Adverse Reactions, Alerts Substance Reaction Event Type N.K.D.A. Info Not Available Non Drug Allergy Problems Problem Type Condition Code Onset Dates Condition Status Assessment Well woman exam Z01.419 Active Assessment Anxiety F41.9 Active Problem Panic disorder without agoraphobia F41.0 Active Assessment Other specified bacterial agents as the cause of diseases classified elsewhere B96.89 Active Assessment Acute vaginitis N76.0 Active Assessment Screen for STD (sexually transmitted disease) Z11.3 Active Assessment Vagina, candidiasis B37.3 Active Medications Medication Code System Code Instructions Start Date End Date Status Dosage Depo-Provera [facility] [address]-49 150 mg/mL Feb 23, 2013 inject 150 mg by intramuscular route every 3 months Diflucan [facility] [address]-04 150 MG Orally Once a day October 06, 2015 1 tablet Flagyl [facility] [address]-75 500 MG Orally 2 times a day October 06, 2015Oct 1 tablet BusPIRone HCl [facility] [address]-16 10 mg Orally 3 times a day as needed for anxiety October 06, 2015 1 tablet Procedures Procedure Coding System Code Date No Charge CPT-4 24400 October 06, 2015 TRICHOMONAS ASSAY W/OPTIC CPT-4 42666 October 06, 2015 SPECIMEN HANDLING CPT-4 25035 October 06, 2015 Preventive Care Est Pt. Age 18-39 CPT-4 25606 October 06, 2015 NICHOLAS VAG, DNA, DIR PROBE CPT-4 52128 October 06, 2015 Vital Signs Date/Time: October 06, 2015 Cardiac Monitoring Heart Rate 75 bpm Weight 126.0 lbs Height 63 in BMI 22.32 Index Blood Pressure Diastolic 60 mmHg Blood Pressure Systolic 112 mmHg Results No Known Results Summary Purpose eClinicalWorks Submission
--- OUTSIDE RECORDS SUMMARY | 2017-11-21 08:53 | XMS REPORT ---
Author Author RAKEL TREVINO Organization eClinicalWorks Address Unknown Phone Unavailable Care Team Providers Care Assistant Professor Of Spanish Name Role Phone RAKEL TREVINO CP Unavailable Allergies No Known Allergies Problems Problem Type Condition Code Onset Dates Condition Status Assessment Panic disorder without agoraphobia F41.0 Active Problem Panic disorder without agoraphobia F41.0 Active Medications No Known Medications Results No Known Results Summary Purpose eClinicalWorks Submission
--- OUTSIDE RECORDS SUMMARY | 2017-11-21 08:53 | XMS REPORT ---
Author Author DAVID BEACH [facility] Address [address] [place] [address] Care Team Providers Care Print Operator Name Role Phone DAVID BEACH Unavailable PROBLEMS Type Condition ICD9-CM Code [id number] Code Onset Dates Condition Status SNOMED Code Problem Panic disorder without agoraphobia F41.0 Active [id number] ALLERGIES No Information ENCOUNTERS Encounter Location Date Diagnosis [facility] [address] [id number] [id number] Nov, Routine gynecological examination Z01.419 and Encounter for oral contraception initial prescription Z30.[address] [id number] [place] [id number] Sep, Encounter for Depo-Provera contraception Z30.[address] [id number][place] [id number] Jun, Encounter for Depo-Provera contraception Z30.[address] [id number][place] [id number] Mar, Encounter for Depo-Provera contraception Z30.[address] [id number][place] [id number] Dec, Encounter for Depo-Provera contraception Z30.42 [facility] [address] [id number][place] [id number] Oct, [facility] [address] [id number][place] [id number] Sep, Well woman exam Z01.419 ; Anxiety F41.9 ; Screen for STD ( sexually transmitted disease) Z11.3 ; Vagina, candidiasis B37.3 ; Other specified bacterial agents as the cause of diseases classified elsewhere B96.89 and Acute vaginitis N76.0 [facility] [address] [id number][place] [id number] Sep, Panic disorder without agoraphobia F41.0 [facility] [address] [id number][place] [id number] Sep, Encounter for Depo-Provera contraception Z30.[address] [facility] [address] [id number], [place] [id number] Jun, Encounter for Depo-Provera contraception Z30.42 [facility] [address] [id number][place] [id number] Mar, Encounter for Depo-Provera contraception Z30.42 [facility] [address] [facility] [address] [id number][place] [id number] Dec, Encounter for Depo-Provera contraception Z30.42 [facility] [address] [id number] [address] Dec, [facility] [address] [id number], [place] [id number] Dec, UTI (urinary tract infection) N39.0 [facility] [address] [id number], [place] [id number] Oct, Encounter for contraceptive management V25.9 [facility] [address] [facility] [id number], [place] [id number] July, Encounter for contraceptive management V25.9 [facility] [address] [id number] [address] Jun, [facility] [id number] [address] Jun, [facility] [address] [id number] [address] Apr, [facility] [id number], [place] [address] Apr, [facility] [place] [facility] [address] [id number] [place] [address] Jan, [facility] [place] [facility] [address] [id number] [place] [address] Jan, [facility] [place] [facility] [address] [facility] [id number] [place] [address] Jan, [facility] [place] [facility] [address] [id number] [place] [address] Jan, [facility] [place] [facility] [address] [id number] [place] [address] Dec, [facility] [place] [facility] [address] [id number] [place] [address] Dec, [facility] [place] [facility] [address] [id number] [place] [address] Dec, [facility] [place] [facility] [address] [id number] [place] [address] Dec, [facility] [place] [facility] [address] [id number] [place] [address] Oct, [facility] [place] [facility] [address] [id number] [place] [address] Oct, [facility] [place] [facility] [address] [id number] [place] [address] Aug, [facility] [place] [facility] [address] [id number], [place] [address] Aug, [facility] [place] [facility] [address] [id number] [place] [address] May, [facility] [place] [facility] [address] [id number] [place] [address] May, [facility] [place] [facility] [address] [facility] [id number] [place] [address] Apr, [facility] [place] [facility] [address] [facility] [id number] [place] [address] Apr, [facility] [address] [facility] [id number] [address] Feb, [facility] [address] [facility] [id number] [place] [address] Feb, [facility] [address] [facility] [id number] [place] [phone] Sep, IMMUNIZATIONS Vaccine Route Administration Date Status DEPO PROVERA (150 MG/ML) IM Intramuscular September 11, 2016 Administered SOCIAL HISTORY Never Assessed REASON FOR VISIT Depo Provera injection AGarrett PLANNING ASSOCIATE PLAN OF CARE VITAL SIGNS MEDICATIONS No Known Medications RESULTS Name Result Date Reference Range TEST, URINE (IN HOUSE) 2016-09-11 RESULTS NEG Lot # [id number] Control [id number] Exp date 12/07/2017 PROCEDURES Procedure Date Ordered Result Body Site URINE TEST September 11, 2016 DEPO PROVERA (150 MG/ML) September 11, 2016 THER/PROPH/DIAG INJ, SC/IM September 11, 2016 INSTRUCTIONS MEDICATIONS ADMINISTERED No Known Medications MEDICAL (GENERAL) HISTORY Type Description Date Hospitalization History abscess tooth 2010
--- OUTSIDE RECORDS SUMMARY | 2017-11-21 08:53 | XMS REPORT ---
Author DAVID Herrera [facility] eClinicalWorks Address Unknown Phone Unavailable Care Team Providers Care Medical Device Assembler Name Role Phone DAVID BEACH CP Unavailable Allergies No Known Allergies Problems Problem Type Condition Code Onset Dates Condition Status Assessment Encounter for Depo-Provera contraception Z30.42 Active Medications No Known Medications Procedures Procedure Coding System Code Date DEPO PROVERA (150 MG/ML) CPT-4 J1050 July 07, 2015 THER/PROPH/DIAG INJ, SC/IM CPT-4 57599 July 07, 2015 URINE TEST CPT-4 21995 July 07, 2015 Results No Known Results Summary Purpose eClinicalWorks Submission
--- OUTSIDE RECORDS SUMMARY | 2017-11-21 08:53 | XMS REPORT ---
Author DAVID Herrera [facility] eClinicalWorks Address Unknown Phone Unavailable Care Team Providers Care Instrument And Electrical Technician Name Role Phone DAVID BEACH CP Unavailable Allergies No Known Allergies Problems Problem Type Condition Code Onset Dates Condition Status Assessment Encounter for Depo-Provera contraception Z30.42 Active Medications No Known Medications Procedures Procedure Coding System Code Date DEPO PROVERA (150 MG/ML) CPT-4 J1050 September 22, 2015 THER/PROPH/DIAG INJ, SC/IM CPT-4 90234 September 22, 2015 URINE TEST CPT-4 60843 September 22, 2015 Results No Known Results Summary Purpose eClinicalWorks Submission
--- OUTSIDE RECORDS SUMMARY | 2017-11-21 08:53 | XMS REPORT ---
Author DAVID Herrera [facility] eClinicalWorks Address Unknown Phone Unavailable Care Team Providers Care Oil Burner Servicer And Installer Name Role Phone DAVID BEACH CP Unavailable Allergies No Known Allergies Problems No Known Problems Medications Medication Code System Code Instructions Start Date End Date Status Dosage Cipro [facility] [address]-10 500 MG Orally Twice a day Jan 04, 2015 1 tablet Results No Known Results Summary Purpose eClinicalWorks Submission
--- OUTSIDE RECORDS SUMMARY | 2017-11-21 08:53 | XMS REPORT ---
Author DAVID Herrera [facility] eClinicalWorks Address Unknown Phone Unavailable Care Team Providers Care Social Work Msw Name Role Phone DAVID BEACH CP Unavailable Allergies No Known Allergies Problems Problem Type Condition Code Onset Dates Condition Status Assessment Encounter for Depo-Provera contraception Z30.42 Active Problem Panic disorder without agoraphobia F41.0 Active Medications No Known Medications Procedures Procedure Coding System Code Date THER/PROPH/DIAG INJ, SC/IM CPT-4 27461 Dec 27, 2015 URINE TEST CPT-4 66033 Dec 27, 2015 DEPO PROVERA (PT'S OWN) CPT-4 04104 Dec 27, 2015 Results Name Result Date Reference Range Unit Abnormality Flag TEST, URINE (IN HOUSE) ----RESULTS NEGATIVE [id number] ----Lot # [id number] ----Control POSITIVE [id number] ----Exp date 06/07/201720151227 Summary Purpose eClinicalWorks Submission
[2017-11-21 09:15] LABS: BASOPHILS % (AUTO) 0 % (0-10); EOSINOPHILS % (AUTO) 0 % (0-10); HEMATOCRIT 33 % (35-52); HEMOGLOBIN 11.6 G/DL (11.5-16.0); LYMPHOCYTES # (AUTO) 1.6 X 10^3 (1.0-4.0); LYMPHOCYTES % (AUTO) 8 % (12-44); MEAN CORPUSCULAR HEMOGLOBIN 33 PG (25-34); MEAN CORPUSCULAR HGB CONC 35 G/DL (32-36); MEAN CORPUSCULAR VOLUME 93 FL (80-99); MEAN PLATELET VOLUME 11.2 FL (7.4-10.4); MONOCYTES # (AUTO) 2.2 X 10^3 (0.0-1.0); MONOCYTES % (AUTO) 11 % (0-12); NEUTROPHILS # (AUTO) 16.6 X 10^3 (1.8-7.8); NEUTROPHILS % (AUTO) 82 % (42-75); PLATELET COUNT 165 10^3/uL (130-400); RED BLOOD COUNT 3.55 10^6/uL (4.35-5.85); RED CELL DISTRIBUTION WIDTH 12.8 % (10.0-14.5); WHITE BLOOD COUNT 20.3 10^3/uL (4.3-11.0)
[2017-11-21] MEDS ORDERED: SUFENTA 0.6MCG/ML BUPIVA 0.125 100 ML ONE (09:18)
[2017-11-21 09:32] LABS: NEUTROPHILS % (MANUAL) 83 %
[2017-11-21 09:33] LABS: ALANINE AMINOTRANSFERASE 9 U/L (0-55); ALBUMIN 3.4 GM/DL (3.2-4.5); ALKALINE PHOSPHATASE 122 U/L (40-136); BAND NEUTROPHILS 1 %; BASOPHILS % (MANUAL) 0 %; BILIRUBIN,TOTAL 0.7 MG/DL (0.1-1.0); BUN/CREATININE RATIO 10; CARBON DIOXIDE 19 MMOL/L (21-32); CHLORIDE 105 MMOL/L (98-107); EOSINOPHILS % (MANUAL) 0 %; GFR ESTIMATED > 60; GLUCOSE 85 MG/DL (70-105); LYMPHOCYTES % (MANUAL) 11 %; MONOCYTES % (MANUAL) 5 %; POTASSIUM 3.9 MMOL/L (3.6-5.0); RBC MORPH NORMAL; SODIUM 132 MMOL/L (135-145); TOTAL PROTEIN 6.7 GM/DL (6.4-8.2)
[2017-11-21] MEDS ORDERED: fentaNYL INJECTION 100 MCG/2 ML AMP ONE (10:01)
[2017-11-21] MEDS ORDERED: BUPIVACAINE 0.25% 30 ML (SENSORCAINE) VIAL ONE (10:02)
[2017-11-21] MEDS ORDERED: LACTATED RINGERS 1,000 ML IV SCH (10:48)
[2017-11-21] MEDS ORDERED: ONDANSETRON 4 MG/2 ML (SDV) Z0FRAN IV PRN (11:00)
[2017-11-21] MEDS ORDERED: diphenhydrAMINE 50 MG/ML INJ (BENADRYL) IV PRN (11:00)
[2017-11-21] MEDS ORDERED: NALOXONE 0.4 MG/ML 1 ML (NARCAN) VIAL IV PRN ×2 (11:00)
[2017-11-21] MEDS ORDERED: EPIDURAL (SUFENTA 0.6MCG/ML BUPIVA 0.125%) 100 ML BAG EPI PRN (11:00)
[2017-11-21] MEDS ORDERED: METOCLOPRAMIDE INJ 10 MG/2 ML (REGLAN) IV PRN (11:00)
[2017-11-21] MEDS ORDERED: AMPICILLIN FOR IV USE 1,000 MG in NS (IVPB) 50 ML IV SCH (12:45)
[2017-11-21] MEDS ORDERED: LIDOCAINE/EPI 2% 1:200,00 (XYLOCAINE) 10 ML VIAL ONE (13:05)
[2017-11-21] MEDS ORDERED: OXYTOCIN/NORMAL SALINE 500 ML IV ONE ×2 (13:21→16:00)
[2017-11-21] MEDS ORDERED: PREN1TAB86 PO (14:00)
[2017-11-21] MEDS ORDERED: CATHETER FLUSH 10 ML SYR IV SCH ×2 (14:00→22:00)
[2017-11-21] MEDS ORDERED: LEVO150T6 PO (14:00)
[2017-11-21] MEDS: OXYTOCIN/NORMAL SALINE 500 ML IV SCH ×2 (15:33→16:00)
--- NOTE | 2017-11-21 16:23 | History & Physical-OB ---
OB - Chief Complaint & HPI Date/Time Date of Admission: Date of Admission: Nov 21, 2017 at 08:33 Time Seen by Provider: 15:00 Chief Complaint/History OB-Reason for Admission/Chief: Rupture of Membranes (SROM at 0630 - clear fluid ) Hx : 1 Hx Para: 0 Hx Last Menstrual Period: 02/28/17 Expected Date of Delivery: Dec 05, 2017 Gestational Age in Weeks: 38 Gestational Age in Days: 0 Admission Nurse Assessment Rev: Yes History of Labs Labs: O positive/antibody screen negative HIV negative Rubella Immune Varicella Immune Hep C Negative Hep B Negative RPR NR CBC WNL CMP WNL TSH 6.79 --> started on levothyroxine GC/Chlamydia Neg Urine Drug Screen Neg Urine Culture - GBS Positive 1 hour Glucose Tolerance Test - Passed, 100 Allergies and Home Medications Allergies Coded Allergies: No Known Drug Allergies (Unverified , 11/21/17) Home Medications Levothyroxine Sodium 150 Mcg Tablet, 150 MCG PO DAILY, (Reported) Vit W-Ca,Fe,FA(<1 mg) 1 Each Tablet, 1 TAB PO DAILY, (Reported) Patient Home Medication List Home Medication List Reviewed: Yes OB - History Hx of Present Care: Yes (Insufficient care; established care at 26 weeks with one visit at 10 weeks with provider in [place]; EDC based on 5w5d US done at [facility] in [place].) Ultrasounds: Abnormal US findings (HC <3rd %-tile at 21 weeks, 30 weeks and 35 weeks. HC symmetric with other measurements at 37 4/7 wks. No formal morphology report able to be obtained, patient did not keep appt for scheduled morphology scans. No obvious abnormalities viewed during US in office.) Obstetrical Complications: Other (Insufficient Care) Medical Complications: Other (Hypothyroidism) Information Induced Hypertension: No Maternal Gestational Diabetes: No Hemorrhage: No Obstetrical History Hx : 1 Hx Para: 0 Hx # Term Pregnancies: 0 Hx # Pregnancies: 0 Number of Living Children: 0 Hx Termination: No Hx Total # of Abortions (Spona: 0 Hx Multiple Gestation: No Hx Ectopic : No Hx Stillbirth: No Hx Complication: No Hx Induced Hypertens: No Hx Maternal Gestational Diabet: No Hx Hemorrhage: No Delivery History Hx Dystocia: No Hx Forceps Assisted Delivery: No Hx Vacuum Extraction Assisted: No Hx Placenta Abnormality: No Hx Distress: No Hx Large For Gestational Age I: No Hx Small for Gestational Age I: No Hx Section: No Hx Vaginal Delivery Post C-Sec: No Hx Blood Disorders: No Adverse Rxn to Tranfusion: No Patient Past Medical History Hypothyroidism Depression Social History/Family History HIV/AIDS: No Recent Infectious Disease Expo: No Sexually Transmitted Disease: No Alcohol Use: Denies Use Recreational Drug Use: No Smoking Cessation: Never smoker Immunizations Tetanus Booster (TDap): Less than 5yrs Rubella: immune RPR/VDRL: Negative GBS Status: Positive HBsAG: Negative OB - Admission Exam Physical Exam Vitals: Vital Signs 11/21/17 11/21/17 11:20 11:50 Temp 98.9 Pulse 95 Resp 20 B/P (MAP) 103/58 (73) Pulse Ox 100 O2 Delivery Non Rebreather O2 Flow Rate 10.00 HEENT: NCAT Heart: Rhythm Normal (systolic murmur) Lungs: Clear Abdomen: Gravid Extremities: Normal Cervical Dilatation: 10cm Effacement: 100% Station: +3 Membranes: Ruptured Amniotic Fluid: Clear Heart Rate: 120's Decelerations: Variable Decelerations Master Printer Variability: Average (6-25) Contractions on Admission: < 5 Minutes Apart Labs Laboratory Tests Test 11/21/17 09:00 Range/Units White Blood Count 20.3 H 4.3-11.0 10^3/uL Red Blood Count 3.55 L 4.35-5.85 10^6/uL Hemoglobin 11.6 11.5-16.0 G/DL Hematocrit 33 L 35-52 % Mean Corpuscular Volume 93 80-99 FL Mean Corpuscular Hemoglobin 33 25-34 PG Mean Corpuscular Hemoglobin Concent 35 32-36 G/DL Red Cell Distribution Width 12.8 10.0-14.5 % Platelet Count 165 130-400 10^3/uL Mean Platelet Volume 11.2 H 7.4-10.4 FL Neutrophils (%) (Auto) 82 H 42-75 % Lymphocytes (%) (Auto) 8 L 12-44 % Monocytes (%) (Auto) 11 0-12 % Eosinophils (%) (Auto) 0 0-10 % Basophils (%) (Auto) 0 0-10 % Neutrophils # (Auto) 16.6 H 1.8-7.8 X 10^3 Lymphocytes # (Auto) 1.6 1.0-4.0 X 10^3 Monocytes # (Auto) 2.2 H 0.0-1.0 X 10^3 Eosinophils # (Auto) 0.0 0.0-0.3 10^3/uL Basophils # (Auto) 0.0 0.0-0.1 10^3/uL Neutrophils % (Manual) 83 % Lymphocytes % (Manual) 11 % Monocytes % (Manual) 5 % Eosinophils % (Manual) 0 % Basophils % (Manual) 0 % Band Neutrophils 1 % Blood Morphology Comment NORMAL Sodium Level 132 L 135-145 MMOL/L Potassium Level 3.9 3.6-5.0 MMOL/L Chloride Level 105 98-107 MMOL/L Carbon Dioxide Level 19 L 21-32 MMOL/L Anion Gap 8 5-14 MMOL/L Blood Urea Nitrogen 6 L 7-18 MG/DL Creatinine 0.60 0.60-1.30 MG/DL Estimat Glomerular Filtration Rate > 60 BUN/Creatinine Ratio 10 Glucose Level 85 70-105 MG/DL Calcium Level 9.0 8.5-10.1 MG/DL Corrected Calcium 9.5 8.5-10.1 MG/DL Total Bilirubin 0.7 0.1-1.0 MG/DL Aspartate Amino Transf (AST/SGOT) 15 5-34 U/L Alanine Aminotransferase (ALT/SGPT) 9 0-55 U/L Alkaline Phosphatase 122 40-136 U/L Total Protein 6.7 6.4-8.2 GM/DL Albumin 3.4 3.2-4.5 GM/DL Thyroid Stimulating Hormone (TSH) 0.70 0.35-4.94 UIU/ML OB - Assessment/Plan/Diagnosis Assessment Assessment: active labor, rupture of membranes Admission Dx Spontaneous Rupture of Membranes 38 weeks Gestation GBS Positive Insufficient Care Hypothyroidism Admission Status: Inpatient Order (span 2 midnights) Reason for Inpatient Admission: delivery and care Plan Plan: Expectant Management Copy Copies To 1: SEVERIANO HOOD MARGARET E DO Nov 21, 2017 16:23
--- NOTE | 2017-11-21 16:29 | OB Labor & Delivery Record ---
Vag Delivery Note Vag Delivery Note Date of Delivery: 11/21/17 Preoperative Diagnosis: Debby Trevizo is a 25 /Para 1/0 , Gestational Age 38 0/7 wks with spontaneous rupture of membranes. Postoperative Diagnosis: Same Surgeon: SEVERIANO HOOD Anesthesia: Epidural Delivery Type: Spontaneous Vaginal Delivery Findings: Viable female , apgars 8,9, weight 3110 grams/ 6lb 14 oz Lacerations: right periurethral, right vaginal sidewall Intact placenta with 3 vessel cord. No nuchal cord, body cord or shoulder dystocia Pitocin wide open x2 bags for hemorrhage prophylaxis Estimated Blood Loss: 100 ml Complications: None Condition: Stable Description of Procedure: The patient is a who presented with spontaneous rupture of membranes. She was admitted and informed consent was obtained. Her labor course was remarkable for variable decelerations, GBS positive status with ampicillin x2 doses. She progressed to complete dilatation and began to push. She was then set up for delivery. The infant's head was delivered atraumatically in the PETER position. The shoulders and remainder of the 's body were then delivered without difficulty. Upon delivery, the was placed on the maternal abdomen. The cord was allowed to pulsate for more than 60 seconds, and then doubly clamped and cut and the was handed off to the pediatric staff. An intact placenta with 3-vessel cord delivered via Ajay and there was found to be minimal bleeding.~ Vigorous fundal massage was performed and the fundus was found to be firm. IV oxytocin was given. Examination of the vagina and perineum revealed a right periurethral laceration that was without bleeding and not requiring repair, and a right vaginal sidewall laceration that was repaired in the usual fashion with 3-0 vicryl suture. Following the repair, sponge, instrument and needle counts were correct. Mom and baby were both in stable condition in the labor suite. Vitals - Labs Vital Signs - I&O Vital Signs Date Time Temp Pulse Resp B/P (MAP) Pulse Ox O2 Delivery O2 Flow Rate FiO2 11/21/17 11:50 95 20 103/58 (73) 100 Non Rebreather 10.00 11/21/17 11:45 93 20 110/64 (79) 100 Non Rebreather 10.00 11/21/17 11:40 82 20 107/68 (81) 100 Non Rebreather 10.00 11/21/17 11:35 92 20 104/68 (80) 100 Non Rebreather 10.00 11/21/17 11:30 81 20 102/62 (75) 100 Non Rebreather 10.00 11/21/17 11:20 98.9 90 20 111/64 (80) 100 Non Rebreather 10.00 11/21/17 11:10 80 20 102/56 (71) 100 Non Rebreather 10.00 11/21/17 11:05 20 103/56 (72) Non Rebreather 10.00 11/21/17 11:00 81 20 100/55 (70) 100 Non Rebreather 10.00 11/21/17 10:55 85 20 90/62 (71) 100 Non Rebreather 10.00 11/21/17 10:50 80 20 105/56 (72) 99 Non Rebreather 10.00 11/21/17 10:45 85 20 110/55 (73) 98 Room Air 11/21/17 10:40 90 20 97/52 (67) 100 Room Air 11/21/17 10:35 88 20 100/56 (71) 100 Room Air 11/21/17 10:30 83 20 99/57 (71) 100 Room Air 11/21/17 10:25 68 20 102/58 (73) 100 Room Air 11/21/17 10:20 68 20 122/78 (93) 99 Room Air 11/21/17 10:15 100 20 124/61 (82) 99 Room Air 11/21/17 09:40 82 20 104/59 (74) Room Air 11/21/17 09:10 88 20 86/57 (67) Room Air 11/21/17 08:40 83 20 104/66 (79) Room Air 11/21/17 08:10 77 20 108/61 (77) Room Air 11/21/17 07:40 99.2 93 20 105/66 (79) Room Air Labs Laboratory Tests 11/21/17 09:00: White Blood Count 20.3H, Red Blood Count 3.55L, Hemoglobin 11.6, Hematocrit 33L , Mean Corpuscular Volume 93, Mean Corpuscular Hemoglobin 33, Mean Corpuscular Hemoglobin Concent 35, Red Cell Distribution Width 12.8, Platelet Count 165, Mean Platelet Volume 11.2H, Neutrophils (%) (Auto) 82H, Lymphocytes (%) (Auto) 8L, Monocytes (%) (Auto) 11, Eosinophils (%) (Auto) 0, Basophils (%) (Auto) 0, Neutrophils # (Auto) 16.6H, Lymphocytes # (Auto) 1.6, Monocytes # (Auto) 2.2H, Eosinophils # (Auto) 0.0, Basophils # (Auto) 0.0, Neutrophils % (Manual) 83, Lymphocytes % (Manual) 11, Monocytes % (Manual) 5, Eosinophils % (Manual) 0, Basophils % (Manual) 0, Band Neutrophils 1, Blood Morphology Comment NORMAL, Sodium Level 132L, Potassium Level 3.9, Chloride Level 105, Carbon Dioxide Level 19L, Anion Gap 8, Blood Urea Nitrogen 6L, Creatinine 0.60, Estimat Glomerular Filtration Rate > 60, BUN/Creatinine Ratio 10, Glucose Level 85, Calcium Level 9.0, Corrected Calcium 9.5, Total Bilirubin 0.7, Aspartate Amino Transf (AST/SGOT) 15, Alanine Aminotransferase (ALT/SGPT) 9, Alkaline Phosphatase 122, Total Protein 6.7, Albumin 3.4, Thyroid Stimulating Hormone ( TSH) 0.70 SEVERIANO HOOD DO Nov 21, 2017 16:29
--- NOTE | 2017-11-21 16:29 | OB Labor & Delivery Record ---
L&D History Date of Service Date of Service: Nov 21, 2017 History Expected Date of Delivery: Dec 05, 2017 Gestational Age in Weeks: 38 Hx : 1 Hx Para: 0 Other History Insufficient care, GBS positive, hypothyroidism Complications Events: Routine care (Insufficient care) Operative Indications (Cesarea: N/A-Vaginal Delivery Intrapartal Events: None (precipitous second stage) L&D Stage1 Stage One Onset of Labor - Date: Nov 21, 2017 Onset of Labor - Time: 06:30 Duration - Stage I: 8 hours 44 min Monitors and Tracing Monitor Mode: External Heart Rate: 140 Monitor Decelerations: Variable Station: -2 Plate Cleaner Variability: Average (6-10) Short Term Variability: Present Presentation: Vertex Vital Signs VS - Last 72 Hours, by Label 11/21/17 11/21/17 11/21/17 11/21/17 07:40 08:10 08:40 09:10 Temp 99.2 Pulse 93 77 83 88 Resp 20 20 20 20 B/P (MAP) 105/66 (79) 108/61 (77) 104/66 (79) 86/57 (67) O2 Delivery Room Air Room Air Room Air Room Air 11/21/17 11/21/17 11/21/17 11/21/17 09:40 10:15 10:20 10:25 Pulse 82 100 68 68 Resp 20 20 20 20 B/P (MAP) 104/59 (74) 124/61 (82) 122/78 (93) 102/58 (73) Pulse Ox 99 99 100 O2 Delivery Room Air Room Air Room Air Room Air 11/21/17 11/21/17 11/21/17 11/21/17 10:30 10:35 10:40 10:45 Pulse 83 88 90 85 Resp 20 20 20 20 B/P (MAP) 99/57 (71) 100/56 (71) 97/52 (67) 110/55 (73) Pulse Ox 100 100 100 98 O2 Delivery Room Air Room Air Room Air Room Air 11/21/17 11/21/17 11/21/17 11/21/17 10:50 10:55 11:00 11:05 Pulse 80 85 81 Resp 20 20 20 20 B/P (MAP) 105/56 (72) 90/62 (71) 100/55 (70) 103/56 (72) Pulse Ox 99 100 100 O2 Delivery Non Rebreather Non Rebreather Non Rebreather Non Rebreather O2 Flow Rate 10.00 10.00 10.00 10.00 11/21/17 11/21/17 11/21/17 11/21/17 11:10 11:20 11:30 11:35 Temp 98.9 Pulse 80 90 81 92 Resp 20 20 20 20 B/P (MAP) 102/56 (71) 111/64 (80) 102/62 (75) 104/68 (80) Pulse Ox 100 100 100 100 O2 Delivery Non Rebreather Non Rebreather Non Rebreather Non Rebreather O2 Flow Rate 10.00 10.00 10.00 10.00 11/21/17 11/21/17 11/21/17 11:40 11:45 11:50 Pulse 82 93 95 Resp 20 20 20 B/P (MAP) 107/68 (81) 110/64 (79) 103/58 (73) Pulse Ox 100 100 100 O2 Delivery Non Rebreather Non Rebreather Non Rebreather O2 Flow Rate 10.00 10.00 10.00 Rupture of Membranes Spontaneous Ruture of Membrane: Yes Amniotic Membrane Rupture Time: 0630 Amniotic Membrane Fluid Desc.: Clear Amniotic Fluid Membrane Tests: Nitrazine Positive Vaginal Bleeding Description: Normal Show Induction/Anesthesia Epidural Cath Placement - Time: 1021 L&D Stage2 Stage Two Stage II Date: Nov 21, 2017 Stage II Time: 15:14 Stage II Duration: 14 minutes Monitors and Tracing Monitor Mode: External Heart Rate: 140 Monitor Decelerations: Variable Detention Variability: Average (6-10) Short Term Variability: Present Position: Right Occiput Anterior Presentation: Vertex Cord Descript/Complications Cord Vessel Description: 3 Vessels Delivery Type Infant Delivery Method: Spontaneous Vaginal Anterior Shoulder: Right Episiotomy/Perineal Laceration Laceraction(s)/Extensions: Yes Episiotomy Description: Periurethral Extnsion/lac (right), Vaginal Extension/ lac (right sidewall) Location Modifier: Right Sutures Used: Vicryl Condition of Infant Delivery Delivery Date & Time: 11/21/2017 1528 1 minute Comment: 8 5 minute Comment: 9 Condition of Infant Condition of Infant: Living Exam: No Observed Abnormalities Resuscitation Resuscitation: N/A - Spontaneous Resp L&D Stage3 Stage Three Stage III Date: Nov 21, 2017 Stage III Time: 15:28 Stage III Duration: 5 min Pictocin Pitocin Administration Comment: bolus rate x2 bags Placenta Delivery Placenta Delivery: Spontaneous Delivery Summary Summary Total Labor Time 9 hours 3 minutes Estimated blood loss (mL): 100 Attending at delivery: Dr. Sherwood Condition of Delivery Examined: Cervix Examined, Uterus Explored Post Hemorrhage: No Condition of Mother stable Condition of (s) SEVERIANO Rahman DO Nov 21, 2017 16:29
[2017-11-21] MEDS ORDERED: HYDROcodone/APAP 5 MG/325 MG (LORTAB) TAB PO PRN (16:30)
[2017-11-21] MEDS: IBUPROFEN 600 MG (MOTRIN) TAB PO PRN (18:41)
[2017-11-21] MEDS: BENZOCAINE/MENTHOL (DERMOPLAST) 56 ML CAN TP PRN (18:44)
[2017-11-21] MEDS: DIBUCAINE (NUPERCAINAL) 1% OINT 30 GM TOP PRN (18:45)
[2017-11-21] MEDS: HYDROCORTISONE 2.5% CREAM (ANUSOL-HC) 30 GM TOP PRN (18:45)
[2017-11-21] MEDS: WITCH HAZEL(TUCKS) 40 EA JAR TOP PRN (18:45)
[2017-11-21] MEDS: DOCUSATE SODIUM 100 MG (COLACE) CAP PO SCH (20:46)
[2017-11-22] MEDS: IBUPROFEN 600 MG (MOTRIN) TAB PO PRN ×4 (00:08→18:01)
[2017-11-22 04:30] VITALS: BP 97/52
[2017-11-22] MEDS: HYDROCORTISONE 2.5% CREAM (ANUSOL-HC) 30 GM TOP PRN ×2 (04:43→18:05)
[2017-11-22] MEDS: DIBUCAINE (NUPERCAINAL) 1% OINT 30 GM TOP PRN ×2 (04:43→18:05)
[2017-11-22 05:31] LABS: BASOPHILS % (AUTO) 0 % (0-10); EOSINOPHILS # (AUTO) 0.1 10^3/uL (0.0-0.3); EOSINOPHILS % (AUTO) 0 % (0-10); HEMATOCRIT 29 % (35-52); HEMOGLOBIN 9.9 G/DL (11.5-16.0); LYMPHOCYTES # (AUTO) 1.6 X 10^3 (1.0-4.0); LYMPHOCYTES % (AUTO) 9 % (12-44); MEAN CORPUSCULAR HEMOGLOBIN 33 PG (25-34); MEAN CORPUSCULAR HGB CONC 35 G/DL (32-36); MEAN CORPUSCULAR VOLUME 94 FL (80-99); MONOCYTES # (AUTO) 2.3 X 10^3 (0.0-1.0); MONOCYTES % (AUTO) 13 % (0-12); NEUTROPHILS # (AUTO) 13.6 X 10^3 (1.8-7.8); NEUTROPHILS % (AUTO) 77 % (42-75); PLATELET COUNT 144 10^3/uL (130-400); RED BLOOD COUNT 3.03 10^6/uL (4.35-5.85); WHITE BLOOD COUNT 17.6 10^3/uL (4.3-11.0)
[2017-11-22] MEDS: LEVOTHYROXINE 150 MCG (LEVOTHROID) TAB PO SCH (05:33)
[2017-11-22 09:00] VITALS: BP 95/62
[2017-11-22] MEDS ORDERED: NON-FORMULARY MEDICATION 1 EA EA (Prenatal Vit W-Ca,Fe,FA(<1 mg) (Prenatal Vitamins) 1 TAB PO SCH (09:00)
--- NOTE | 2017-11-22 09:11 | Anesthesia-Regional Post-Op ---
Regional Patient Condition Mental Status: Alert, Oriented x3 Circulation: Same as Pre-Op Headache: Absent Sensation: Full Recovery Motor Block: Absent Post Op Complications Complications None Follow Up Care/Instructions Patient Instructions None needed. Anesthesia/Patient Condition Patient is doing well, no complaints, stable vital signs, no apparent adverse anesthesia problems. No complications reported per nursing. D/C home per [facility] Criteria: Yes VANDANA LINDSAY CRNA Nov 22, 2017 09:11
[2017-11-22] MEDS: DOCUSATE SODIUM 100 MG (COLACE) CAP PO SCH ×2 (09:48→20:50)
[2017-11-22] MEDS: PRENATAL VITAMIN 1 EA TAB PO SCH (09:48)
[2017-11-22] MEDS: WITCH HAZEL(TUCKS) 40 EA JAR TOP PRN (10:12)
[2017-11-22 12:00] VITALS: BP 100/67
[2017-11-22 15:17] VITALS: BP 107/67
--- NOTE | 2017-11-22 16:05 | Progress Note (SOAP) ---
Subjective Subjective/Events-last exam Doing well. Pt has no complaints. Review of Systems Date Seen by Provider: Nov 22, 2017 Time Seen by Provider: 09:00 Objective Exam Last Set of Vital Signs Vital Signs Date Time Temp Pulse Resp B/P (MAP) Pulse Ox O2 Delivery O2 Flow Rate FiO2 11/22/17 15:17 97.6 89 16 107/67 (80) 100 Room Air 11/21/17 15:15 10.00 Capillary Refill : I&O Intake and Output 11/22/17 00:00 Intake Total 3130 ml Balance 3130 ml Intake IV Total 3130 ml Daily Weight Change No General: Alert, Oriented X3, Cooperative Psych/Mental Status: Mood NL Results/Procedures Lab Laboratory Tests 11/22/17 05:04: White Blood Count 17.6H, Red Blood Count 3.03L, Hemoglobin 9.9L, Hematocrit 29L , Mean Corpuscular Volume 94, Mean Corpuscular Hemoglobin 33, Mean Corpuscular Hemoglobin Concent 35, Red Cell Distribution Width 13.0, Platelet Count 144, Mean Platelet Volume 11.0H, Neutrophils (%) (Auto) 77H, Lymphocytes (%) (Auto) 9L, Monocytes (%) (Auto) 13H, Eosinophils (%) (Auto) 0, Basophils (%) (Auto) 0, Neutrophils # (Auto) 13.6H, Lymphocytes # (Auto) 1.6, Monocytes # (Auto) 2.3H, Eosinophils # (Auto) 0.1, Basophils # (Auto) 0.0 Assessment/Plan Assessment/Plan Assessment & Plan 1. PPD #1 s/p at 38 wk following SROM 2. R periurethral laceration; R vaginal side wall laceration - repaired 3. GBS + 4. Insufficient care 5. hypothyroidism Anticipate DC home tomorrow. Clinical Quality Measures DVT/VTE Risk/Contraindication: Risk Factor Score Per Nursin RFS Level Per Nursing on Admit: 1=Low/No VTE PPX GUALBERTO TORRES DO Nov 22, 2017 16:05
[2017-11-22] MEDS: BENZOCAINE/MENTHOL (DERMOPLAST) 56 ML CAN TP PRN (18:05)
[2017-11-22 21:00] VITALS: BP 109/71
[2017-11-23] MEDS: IBUPROFEN 600 MG (MOTRIN) TAB PO PRN ×3 (00:11→12:11)
[2017-11-23 02:30] VITALS: BP 104/65
[2017-11-23] MEDS: LEVOTHYROXINE 150 MCG (LEVOTHROID) TAB PO SCH (06:00)
[2017-11-23 09:00] VITALS: BP 110/70
[2017-11-23] MEDS: DOCUSATE SODIUM 100 MG (COLACE) CAP PO SCH (09:07)
[2017-11-23] MEDS: PRENATAL VITAMIN 1 EA TAB PO SCH (09:07)
[2017-11-23] MEDS ORDERED: IBUP-844 PO (11:57)
--- NOTE | 2017-11-23 11:59 | Discharge Instructions ---
Discharge Inst-[facility] Depart Medications New, Converted or Re-Newed RX: Other (over the counter) New Medications: Ibuprofen (Ibu) 600 Mg Tablet 600 MG PO Q6H PRN for PAIN-MILD TO MODERATE, #90 TAB 0 Refills Continued Medications: Levothyroxine Sodium (Levothyroxine Sodium) 150 Mcg Tablet 150 MCG PO DAILY, TAB Vit W-Ca,Fe,FA(<1 mg) ( Vitamins) 1 Each Tablet 1 TAB PO DAILY, TAB Follow Up/Instructions Goal/Follow Up: Follow-up with Dr. Sherwood in 6 weeks. Activity Activity: Activity as Tolerated Driving Instructions: You May Drive NO SMOKING: NO SMOKING Nothing Inside Vagina: No Douching, No [place], No Tampons Diet Discharge Diet: No Restrictions Symptoms to Report to : Bleeding Excessive, Pain Increased, Fever Over 101 Degrees F, Vaginal Bleeding Increase, Vaginal Discharge Foul, Shortness of Breath For Any Problems or Questions: Contact Your Physician GUALBERTO TORRES DO Nov 23, 2017 11:58
[2017-11-23 15:00] VITALS: BP 116/76
--- NOTE | 2017-11-23 15:34 | Discharge Summary ---
Diagnosis/Chief Complaint Date of Admission Nov 21, 2017 at 08:33 Date of Discharge Nov 23, 2017 Admission Diagnosis Admission Diagnosis 1. 38 wk following SROM 2. GBS + 3. Insufficient care 4. hypothyroidism Discharge Diagnosis 1. PPD #2 s/p at 38 wk following SROM 2. R periurethral laceration; R vaginal side wall laceration - repaired 3. GBS + 4. Insufficient care 5. hypothyroidism Discharge Summary-OBS Procedures None. Discharge Physical Examination Allergies: Coded Allergies: No Known Drug Allergies (Unverified , 11/21/17) Vitals & I&Os Vital Sign - Last 12Hours Date Time Temp Pulse Resp B/P (MAP) Pulse Ox O2 Delivery O2 Flow Rate FiO2 11/23/17 09:00 98.6 76 18 110/70 (83) 99 Room Air 11/21/17 15:15 10.00 Hospital Course Routine pp care. DC to room in as baby has had 9% weight loss. Discharge Instructions to patient/family Please see electronic discharge instructions given to patient. Discharge Medications Reviewed and agree with Discharge Medication list on patient's Discharge Instruction sheet Clinical Quality Measures DVT/VTE Risk/Contraindication: Risk Factor Score Per Nursin RFS Level Per Nursing on Admit: 1=Low/No VTE PPX GUALBERTO TORRES DO Nov 23, 2017 15:34
[2017-11-23 16:00] VITALS: BP 116/76
== END 2017-11-23 16:00 | disposition home or self-care (01) | DRG 775 ==
LOC: WSo 07:00 → LDRP 07:01 → WSo 08:33 → LDRP 19:00
PROVIDERS: ADMIT Family Medicine; ATTEND Family Medicine
PROC: 10E0XZZ Delivery of Products of Conception, External Approach (ICD-10-PCS; principal; 2017-11-21)
PROC: 0HQ9XZZ Repair Perineum Skin, External Approach (ICD-10-PCS; 2017-11-21)
DX: O99.283 Endocrine, nutritional and metabolic diseases complicating pregnancy, third trimester (principal); E03.9 Hypothyroidism, unspecified; O71.4 Obstetric high vaginal laceration alone; O76 Abnormality in fetal heart rate and rhythm complicating labor and delivery; O99.343 Other mental disorders complicating pregnancy, third trimester; F32.9 Major depressive disorder, single episode, unspecified; O99.820 Streptococcus B carrier state complicating pregnancy; O09.33 Supervision of pregnancy with insufficient antenatal care, third trimester; Z3A.38 38 weeks gestation of pregnancy; Z37.0 Single live birth
CPT/HCPCS: 36415; 80053; 84443; 85007; 85025; 85027; 86850; 86900; 86901; 99212